=== PATIENT | female | born 1955 | race Caucasian/White ===

== ENCOUNTER 2020-10-28 12:16 | Emergency (ER) | payer OTHER ==
[~2020-10-28 12:16] MED LIST: ACYCLOVIR30 GM TOP; ALDACTONE25 MG PO; ASPIRIN CHEWABL81 MG PO; ATROVENT HFA12.9 GM INH; BACITRACIN15 GM TOP; BACLOFEN 10MG T10 MG PO; BISOPROLOL FUMAR5 MG PO; CEFDINIR300 MG PO; CHANTIX PO; CLARITIN10 MG PO; DUONEB 2.5-0.5M1 AMP INH; FLORANEX TABLE1 EACH PO; FOLIC ACID1 MG PO; FUROSEMIDE 20MG20 MG PO; HEPARIN 3010 UNIT/1 IV; IMODIUM2 MG PO; IRON325 M1 PO; LASIX20 MG PO; LASIX40 MG PO; LIDOCAINE 5% P1 EACH TOP; MUCINEX 600MG600 MG PO; NICOTINE PATCH1 EAC2 TD; NIFEREX150 MG PO; NORMAL SALINE F10 ML IVP; NYSTATIN1 EAC3 TOP; ONDANSETRON HCL4 MG PO; OXY-IR 5MG5 MG PO; PANTOPRAZOLE SO40 MG PO; PERCOCET 5-3251 EACH PO; POTASSIUM CHLO20 ME2 PO; PREDNISONE 20MG20 MG PO; PROAMATINE5 MG PO; PROTONIX 40MG T40 MG PO; PROVENTIL HFA6.7 GM INH; PROZAC20 MG PO; PULMICORT0.5 MG/2 M NEB; REMERON15 MG PO; SENOKOT8.6 MG PO; SILVASORB44.4 ML TOP; SINGULAIR10 MG PO; SPIRIVA 185 PUFFS/IN INH; TRAMADOL HCL50 MG PO; TRELEGY ELLIPT1 EACH INH; TRELEGY ELLIPT1 EACH PO; VANCOMYCIN750 MG/150 IV; VENTOLIN (2.5 MG/3 M INH; VENTOLIN HFA IN18 GM INH; VITAMIN B-121000 MC1 PO; VITAMIN B122500 MCG PO; VITAMIN D31250 MCG PO; VITAMIN D32000 UNI2 PO; VOLTAREN **OUT50 MG PO; XIFAXAN550 MG PO; ZINC SULFATE220 M1 PO; ZINC50 MG PO; ZOFRAN8 MG PO
[2020-10-28 13:44] LABS: BASOPHIL 0.7 % (0-2); EOSINOPHIL 0.8 % (0-5); HCT 28.8 % (37.0-47.0); LYMPHOCYTE 2.2 % (15-48); MCH 31.1 pg (25.0-31.0); MCHC 31.3 g/dL (32.0-36.0); MCV 99.7 fL (78.0-100.0); MONOCYTE 5.3 % (0-12); MPV 10.3 fL (6.0-9.5); NEUTROPHIL 90.4 % (41-80); NRBC 0; PLT 311 K/uL (150-400); RBC 2.89 M/uL (4.20-5.40); RDW 15.2 % (11.5-14.0)
[2020-10-28 13:47] LABS: INR 1.05 (0.9-1.2); PTT 42.2 SECONDS (22.2-34.7)
[2020-10-28 13:53] LABS: WBC 8.5 K/uL (4.0-10.5)
[2020-10-28 14:00] LABS: ALBUMIN 2.2 g/dL (3.4-5.0); BILIRUBIN - TOTAL 0.5 mg/dL (0.2-1.0); BUN/CREAT RATIO (CALC) 43.5 RATIO; C-REACTIVE PROTEIN 13.4 mg/dL (<=0.90); CREATININE 0.69 mg/dL (0.51-0.95); GLOBULIN (CALCULATION) 5.7 g/dL; POTASSIUM 3.9 mmol/L (3.5-5.1); TOTAL PROTEIN 7.9 g/dL (6.4-8.2)
== END 2020-10-28 19:47 | disposition other institution (70) ==
LOC: FER 12:16
PROVIDERS: Emergency Medicine
DX: M86.8X6 Other osteomyelitis, lower leg (principal); L02.416 Cutaneous abscess of left lower limb; J44.9 Chronic obstructive pulmonary disease, unspecified; F17.200 Nicotine dependence, unspecified, uncomplicated; Z20.822 Contact with and (suspected) exposure to COVID-19
CPT/HCPCS: 36415; 80053; 83605; 84145; 85025; 85610; 85730; 86140; J1170; J2405; J2543; J3370; J7050; U0002

== ENCOUNTER 2021-05-19 06:04 | Inpatient (IN) | payer OTHER ==
[~2021-05-19] VITALS: Ht 175.3 cm; Wt 50.0 kg
[2021-05-19 06:54] LABS: BASOPHIL 0.2 % (0-2); EOSINOPHIL 0.3 % (0-7); HGB 9.8 g/dl (12.5-16.0); LYMPHOCYTE 1.4 % (15-48); MCH 30.6 pg (25.0-31.0); MCHC 31.6 g/dL (32.0-36.0); MCV 96.9 fL (78.0-100.0); MONOCYTE 3.8 % (0-12); MPV 10.4 fL (6.0-9.5); NRBC 0; PLT 178 K/uL (150-400); RDW 15.2 % (11.5-14.0); WBC 15.1 K/uL (4.0-10.5)
[2021-05-19 07:08] LABS: NEUTROPHIL 93.4 % (41-80)
[2021-05-19 07:24] LABS: CORONAVIRUS 2019 SARS-COV-2 NEGATIVE (NEGATIVE); INFLUENZA A NAA NEGATIVE (NEGATIVE)
[2021-05-19 07:30] LABS: ACETAMINOPHEN (TYLENOL) 77.4 ug/mL (10.0-30.0); ALBUMIN 2.1 g/dL (3.4-5.0); ALKALINE PHOSHATASE 193 U/L (46-116); ALT 75 U/L (14-59); AST 92 U/L (15-37); BILIRUBIN - TOTAL 1.3 mg/dL (0.2-1.0); BUN 22 mg/dL (7-18); BUN/CREAT RATIO (CALC) 34.9 RATIO; CHLORIDE 95 mmol/L (98-107); CO2 (BICARBONATE) 37 mmol/L (21-32); CREATININE 0.63 mg/dL (0.51-0.95); GLOBULIN (CALCULATION) 4.4 g/dL; GLUCOSE 173 mg/dL (74-106); POTASSIUM 3.5 mmol/L (3.5-5.1); TOTAL PROTEIN 6.5 g/dL (6.4-8.2)
[2021-05-19 07:40] LABS: BILIRUBIN 1+ mg/dL (NEGATIVE); BLOOD NEGATIVE Ery/uL (NEGATIVE); CLARITY CLEAR (CLEAR); COLOR YELLOW (YELLOW); GLUCOSE (U) NORMAL (NORMAL); LEUKOCYTES NEGATIVE Leu/uL (NEGATIVE); NITRITE NEGATIVE (NEGATIVE); PROTEIN TRACE (LOW) mg/dL (NEGATIVE); SPECIFIC GRAVITY 1.025 (1.001-1.030); UROBILINOGEN 0.2 mg/dL (0.2-1.0); pH 5.5 (5.0-9.0)
[2021-05-19 07:52] LABS: BACTERIA TRACE
[2021-05-19 07:53] LABS: URINARY RBC RARE
[2021-05-19 08:52] LABS: MARIJUANA (THC) NEGATIVE (NEGATIVE)
[2021-05-19 08:53] LABS: AMPHETAMINES POSITIVE (NEGATIVE); BARBITURATES NEGATIVE (NEGATIVE); ECSTASY (MDMA) NEGATIVE (NEGATIVE); METHADONE NEGATIVE (NEGATIVE); OPIATES POSITIVE (NEGATIVE); OXYCODONE NEGATIVE (NEGATIVE)
[2021-05-19] MEDS ORDERED: NORCO 5-325 TA1 EACH PO (14:03)
[2021-05-19] MEDS ORDERED: ASPIRIN EC81 MG PO (14:04)
[2021-05-19] MEDS ORDERED: CLARITIN10 MG PO (14:04)
[2021-05-19] MEDS ORDERED: FEOSOL325 MG PO (14:04)
[2021-05-19] MEDS ORDERED: BUSPAR5 MG PO (14:04)
[2021-05-19] MEDS ORDERED: MELATONIN10 MG PO (14:05)
[2021-05-19] MEDS ORDERED: TYLENOL ARTHRI650 MG PO (14:05)
[2021-05-19] MEDS ORDERED: URSODIOL300 MG PO (14:06)
[2021-05-19] MEDS ORDERED: ATARAX25 MG PO (14:06)
[2021-05-19 14:40] LABS: ACETAMINOPHEN (TYLENOL) 27.3 ug/mL (10.0-30.0); ALBUMIN 1.9 g/dL (3.4-5.0); BILIRUBIN - TOTAL 0.9 mg/dL (0.2-1.0); BUN/CREAT RATIO (CALC) 27.8 RATIO; CREATININE 0.72 mg/dL (0.51-0.95); GLOBULIN (CALCULATION) 4.2 g/dL; POTASSIUM 3.2 mmol/L (3.5-5.1); TOTAL PROTEIN 6.1 g/dL (6.4-8.2)
[2021-05-20 06:28] LABS: BASOPHIL 0.3 % (0-2); EOSINOPHIL 0.9 % (0-7); HCT 27.9 % (37.0-47.0); HGB 8.8 g/dl (12.5-16.0); LYMPHOCYTE 3.3 % (15-48); MCH 30.4 pg (25.0-31.0); MCHC 31.5 g/dL (32.0-36.0); MCV 96.5 fL (78.0-100.0); MONOCYTE 4.1 % (0-12); MPV 10.6 fL (6.0-9.5); NEUTROPHIL 90.8 % (41-80); NRBC 0; PLT 152 K/uL (150-400); RBC 2.89 M/uL (4.20-5.40); RDW 15.3 % (11.5-14.0); RETICULOCYTE COUNT 2.2 % (1.0-2.0); WBC 7.8 K/uL (4.0-10.5)
[2021-05-20 06:30] LABS: INR 1.31 (0.9-1.2); PROTHROMBIN TIME 15.6 SECONDS (11.8-13.4); PTT 33.8 SECONDS (24.4-34.7)
[2021-05-20 07:12] LABS: ACETAMINOPHEN (TYLENOL) <2.0 ug/mL (10.0-30.0); ALBUMIN 1.8 g/dL (3.4-5.0); ALKALINE PHOSHATASE 175 U/L (46-116); ALT 157 U/L (14-59); AST 200 U/L (15-37); BILIRUBIN - TOTAL 0.8 mg/dL (0.2-1.0); BUN 14 mg/dL (7-18); BUN/CREAT RATIO (CALC) 25.5 RATIO; CHLORIDE 100 mmol/L (98-107); CO2 (BICARBONATE) 38 mmol/L (21-32); CREATININE 0.55 mg/dL (0.51-0.95); FOLIC ACID (SERUM) 40.1 ng/mL (8.6-58.9); GLOBULIN (CALCULATION) 4.1 g/dL; GLUCOSE 93 mg/dL (74-106); MAGNESIUM 1.5 mg/dL (1.8-2.4); PHOSPHORUS 2.2 mg/dL (2.6-4.7); POTASSIUM 3.1 mmol/L (3.5-5.1); TOTAL PROTEIN 5.9 g/dL (6.4-8.2)
[2021-05-21 07:05] LABS: BASOPHIL 0.2 % (0-2); HCT 25.8 % (37.0-47.0); HGB 8.2 g/dl (12.5-16.0); LYMPHOCYTE 4.7 % (15-48); MCH 30.5 pg (25.0-31.0); MCHC 31.8 g/dL (32.0-36.0); MCV 95.9 fL (78.0-100.0); MONOCYTE 6.3 % (0-12); MPV 10.4 fL (6.0-9.5); NEUTROPHIL 86.1 % (41-80); NRBC 0; PLT 146 K/uL (150-400); RBC 2.69 M/uL (4.20-5.40); RDW 15.6 % (11.5-14.0); WBC 5.6 K/uL (4.0-10.5)
[2021-05-21 07:30] LABS: ALBUMIN 1.9 g/dL (3.4-5.0); BILIRUBIN - TOTAL 0.4 mg/dL (0.2-1.0); BUN/CREAT RATIO (CALC) 24.6 RATIO; CREATININE 0.61 mg/dL (0.51-0.95); GLOBULIN (CALCULATION) 4.2 g/dL; POTASSIUM 3.6 mmol/L (3.5-5.1); TOTAL PROTEIN 6.1 g/dL (6.4-8.2)
[2021-05-21 07:42] LABS: INR 1.02 (0.9-1.2); PROTHROMBIN TIME 12.8 SECONDS (11.8-13.4); PTT 33.7 SECONDS (24.4-34.7)
--- NOTE | 2021-05-21 22:10 | NUR ---
PATIENT TRANSFERED TO [facility]. VIA EMS. PATIENT LEFT BIULDING AT 2200
== END 2021-05-21 22:00 | DRG 918 ==
LOC: FER 06:04 → FTCU 08:36
PROVIDERS: Emergency Medicine Emergency Medical Services; ADMIT Internal Medicine
DX: T39.1X2A Poisoning by 4-Aminophenol derivatives, intentional self-harm, initial encounter (principal); R45.851 Suicidal ideations; R18.8 Other ascites; N30.00 Acute cystitis without hematuria; Z20.822 Contact with and (suspected) exposure to COVID-19; F32.9 Major depressive disorder, single episode, unspecified; K75.81 Nonalcoholic steatohepatitis (NASH); K74.69 Other cirrhosis of liver; J44.9 Chronic obstructive pulmonary disease, unspecified; B96.20 Unspecified Escherichia coli [E. coli] as the cause of diseases classified elsewhere; F41.9 Anxiety disorder, unspecified; F17.210 Nicotine dependence, cigarettes, uncomplicated; E55.9 Vitamin D deficiency, unspecified; Z96.642 Presence of left artificial hip joint; Z90.49 Acquired absence of other specified parts of digestive tract; Z98.890 Other specified postprocedural states; Z88.8 Allergy status to other drugs, medicaments and biological substances; Z87.01 Personal history of pneumonia (recurrent)
CPT/HCPCS: 36415; 71045; 80053; 80305; 81001; 82607; 82746; 83540; 83550; 83605; 83735; 84100; 84484; 85025; 85610; 85730; 87076; 87088; 87186; 93005; 94010; 94640; C9113; G0480; J0132; J0696; J3475; J7030; J7060; U0002